=== PATIENT | male | born 1950 | race African-American/Black ===

== ENCOUNTER 2019-08-14 19:11 | Inpatient (IN) | payer OTHER, MEDICAID ==
[~2019-08-14] VITALS: Ht 175.3 cm; Wt 87.2 kg
[2019-08-14] MEDS ORDERED: SODIUM CHLORIDE 0.9% 2,000 ML IV ONE (20:00)
[2019-08-14] MEDS ORDERED: NALOXONE HCL 1 MG/ML 2 ML SYG IVP ONE (20:15)
[2019-08-14 20:29] LABS: BASOPHILS % (AUTO) 0.4 % (0.0-2.0); EOSINOPHILS % (AUTO) 0.3 % (1.0-6.0); HEMATOCRIT 45.9 % (41-53); HEMOGLOBIN 15.6 g/dL (13.5-17.5); LYMPHOCYTES # (AUTO) 1.3 K/uL (1.0-4.8); LYMPHOCYTES % (AUTO) 18.6 % (22.0-44.0); MEAN CORPUSCULAR HEMOGLOBIN 28.9 pg (26.0-34.0); MEAN CORPUSCULAR HGB CONC 33.9 G/dL (31.0-37.0); MEAN CORPUSCULAR VOLUME 85 fL (80-100); MONOCYTES # (AUTO) 0.4 K/uL (0.1-1.0); MONOCYTES % (AUTO) 6.1 % (2.0-9.0); NEUTROPHILS # (AUTO) 5.2 K/uL (1.8-7.7); NEUTROPHILS % (AUTO) 74.6 % (40.0-70.0); PLATELET COUNT (AUTO) 220 K/uL (150-450); RED BLOOD CELL COUNT(AUTO) 5.38 MIL/uL (4.50-5.90); RED CELL DISTRIBUTION WIDTH 14.5 % (11.5-14.5)
[2019-08-14 20:43] LABS: ANION GAP 11 mmol/L (8-16); CALCIUM, TOTAL 9.6 mg/dL (8.8-10.5); CARBON DIOXIDE 28 mmol/L (22-29); CHLORIDE 101 mmol/L (98-107); CREATININE 1.52 mg/dL (0.60-1.30); GLOMERULAR FILTR. RATE CALC 56 mL/min (>60); GLUCOSE,RANDOM 192 mg/dL (70-110); POTASSIUM 3.3 mmol/L (3.5-5.1); SODIUM SERUM 140 mmol/L (136-145); UREA NITROGEN, BLOOD 18 mg/dL (7-18)
[2019-08-14 20:46] LABS: AMMONIA 13 umol/L (11-32)
[2019-08-14 20:48] LABS: TROPONIN I < 0.02 ng/mL (0.00-0.05)
[2019-08-14 20:57] LABS: B-TYPE NATRIURETIC PEPTIDE 41 pg/mL (0-100)
[2019-08-14 21:00] LABS: ALANINE AMINOTRANSFERASE 35 U/L (12-78); ALBUMIN 4.1 g/dL (3.4-5.0); ALKALINE PHOSPHATASE 90 U/L (46-116); ASPARTATE AMINOTRANSFERASE 20 U/L (15-37); BILIRUBIN,TOTAL 0.8 mg/dL (0.1-1.0); LIPASE 67 U/L (73-393); TOTAL PROTEIN, SERUM 8.9 g/dL (6.4-8.2)
[2019-08-14 21:10] LABS: LACTIC ACID 2.2 mmol/L (0.4-2.0)
[2019-08-14 21:15] LABS: APPEARANCE,URINE CLOUDY (CLEAR); GLUCOSE, URINE (UA) NEGATIVE (NEGATIVE); KETONES,URINE TRACE mg/dL (NEGATIVE); LEUKOCYTE ESTERASE ,URINE MODERATE (NEGATIVE); NITRATE,URINE NEGATIVE (NEGATIVE); OCCULT BLOOD,URINE LARGE (NEGATIVE); PROTEIN,URINE SEE CONFIRM (NEGATIVE)
[2019-08-14 21:21] LABS: BILIRUBIN,URINE PRELIM. POSITIVE (NEGATIVE)
[2019-08-14 21:22] LABS: INR 1.1 (0.9-1.1); PROTHROMBIN TIME 11.4 SEC (9.4-11.6)
[2019-08-14 21:23] LABS: AMPHET/METH SCREEN,URINE NEGATIVE (NEGATIVE); BARBITURATE SCREEN, URINE NEGATIVE (NEGATIVE); BENZODIAZEPINES SCREEN,URINE NEGATIVE (NEGATIVE); CANNABINOID SCREEN,URINE NEGATIVE (NEGATIVE); COCAINE SCREEN,URINE NEGATIVE (NEGATIVE); METHADONE SCREEN, URINE NEGATIVE (NEGATIVE); OPIATE SCREEN,URINE NEGATIVE (NEGATIVE)
[2019-08-14 21:30] LABS: PHENCYCLIDINE SCREEN,URINE NEGATIVE (NEGATIVE); RBC,URINE Full Field /HPF (0-2)
[2019-08-14] MEDS ORDERED: ONDANSETRON HCL 4 MG/2 ML VIAL IVP PRN ×2 (21:30→22:15)
[2019-08-14] MEDS ORDERED: 0.9% SODIUM CHLORIDE 10 ML SYRINGE IVP PRN (21:30)
[2019-08-14] MEDS ORDERED: OXYGEN THERAPY IH SCH (21:30)
[2019-08-14 21:31] LABS: SULFOSALICYLIC ACID,URINE 3+ (Negative)
[2019-08-14 21:32] LABS: BACTERIA,URINE Rare /HPF (None Seen)
[2019-08-14] MEDS ORDERED: LORazepam 2 MG/ML VIAL IVP ONE ×2 (22:00→22:15)
[2019-08-14] MEDS ORDERED: MAGNESIUM HYDROXIDE SUSPENSION 30 ML UDCUP PO PRN (22:15)
[2019-08-14] MEDS ORDERED: BISACODYL 10 MG RECTAL RECTAL SUPPOSITORY PR PRN (22:15)
[2019-08-14] MEDS ORDERED: ACETAMINOPHEN 325 MG TABLET PO PRN (22:15)
[2019-08-14] MEDS ORDERED: ZOLPIDEM TARTRATE 5 MG TABLET PO PRN (22:15)
[2019-08-14 23:30] VITALS: BP 198/97
[2019-08-14] MEDS ORDERED: SODIUM CHLORIDE 0.9% 250 ML IV ONE (23:36)
[2019-08-14] MEDS: POTASSIUM CHL 10 MEQ/WATER 50 ML IV SCH (23:42)
[2019-08-15] VITALS (7 sets, daily range): BP systolic 139–202; BP diastolic 57–98
[2019-08-15] MEDS: NiCARDipine HCL 25 MG in DEXTROSE 5%-WATER 240 ML IV PRN ×11 (00:21→21:26)
[2019-08-15] MEDS: POTASSIUM CHL 10 MEQ/WATER 50 ML IV SCH (00:46)
[2019-08-15] MEDS ORDERED: PNEUMOCOCCAL VACCINE POLYVALENT 0.5 ML VIAL [PPSV23] IM ONE (01:45)
[2019-08-15] MEDS ORDERED: INFLUENZA VIRUS VACCINE QVS 2019-20 (3YR+)/PF 60 MCG/0.5 ML SYRINGE IM ONE (01:45)
[2019-08-15 05:31] LABS: BASOPHILS % (AUTO) 0.3 % (0.0-2.0); EOSINOPHILS % (AUTO) 0.2 % (1.0-6.0); HEMATOCRIT 43.5 % (41-53); HEMOGLOBIN 14.7 g/dL (13.5-17.5); LYMPHOCYTES % (AUTO) 11.6 % (22.0-44.0); MEAN CORPUSCULAR HEMOGLOBIN 28.9 pg (26.0-34.0); MEAN CORPUSCULAR HGB CONC 33.7 G/dL (31.0-37.0); MEAN CORPUSCULAR VOLUME 86 fL (80-100); MONOCYTES # (AUTO) 0.6 K/uL (0.1-1.0); MONOCYTES % (AUTO) 6.7 % (2.0-9.0); NEUTROPHILS # (AUTO) 6.9 K/uL (1.8-7.7); NEUTROPHILS % (AUTO) 81.2 % (40.0-70.0); PLATELET COUNT (AUTO) 188 K/uL (150-450); RED BLOOD CELL COUNT(AUTO) 5.08 MIL/uL (4.50-5.90); RED CELL DISTRIBUTION WIDTH 14.9 % (11.5-14.5)
[2019-08-15 05:40] LABS: ANION GAP 10 mmol/L (8-16); CALCIUM, TOTAL 8.6 mg/dL (8.8-10.5); CARBON DIOXIDE 27 mmol/L (22-29); CHLORIDE 100 mmol/L (98-107); CREATININE 1.34 mg/dL (0.60-1.30); GLOMERULAR FILTR. RATE CALC > 60 mL/min (>60); GLUCOSE,RANDOM 310 mg/dL (70-110); POTASSIUM 3.5 mmol/L (3.5-5.1); SODIUM SERUM 137 mmol/L (136-145); UREA NITROGEN, BLOOD 13 mg/dL (7-18)
[2019-08-15] MEDS: PANTOPRAZOLE SODIUM 40 MG DR TABLET PO SCH (09:00)
[2019-08-15] MEDS: DOCUSATE SODIUM 100 MG CAPSULE PO SCH ×2 (09:00→20:17)
[2019-08-15] MEDS ORDERED: BACITRACIN 50,000 UNITS/VIAL ONE (09:14)
[2019-08-15] MEDS ORDERED: LIDOCAINE 1%/EPI 1:200,000/PF 10 ML VIAL ONE (09:14)
[2019-08-15] MEDS ORDERED: BACITRACIN 28.4 GM OINTMENT TP ONE (09:16)
[2019-08-15] MEDS ORDERED: PHENYTOIN SODIUM 50 MG/ML IV ONE (09:16)
[2019-08-15] MEDS ORDERED: THROMBIN, BOVINE 20000 UNITS/VIAL POWDER TP ONE (09:17)
[2019-08-15] MEDS ORDERED: GELATIN SPONGE,ABSORBABLE 50 MM TP ONE (09:18)
[2019-08-15] MEDS ORDERED: SUGAMMADEX SODIUM 200 MG/2 ML VIAL IVP ONE (09:31)
[2019-08-15] MEDS ORDERED: RINGERS SOLUTION,LACTATED 1,000 ML IV ONE (10:48)
[2019-08-15 16:23] LABS: ABG HCO3 21.4 mmol/L (22.0-26.0); ABG PCO2 39 mmHg (35-45); ABG PH 7.357 (7.35-7.450); PO2, ARTERIAL BG 79.2 mmHg (79.0-87.0); SITE, BLOOD GAS ARTERIAL LINE; SOURCE, BLOOD GAS ARTERIAL; TEMPERATURE, FAHRENHEIT, BG 98.1 FAHREN (96.0-98.6)
[2019-08-15 16:24] LABS: ABG A-A DIFF O2 74.3 mmHg (10-20.0); ABG BASE EXCESS -3.9 mmol/L (-2.0-3.0); ABG CARBOXYHEMOGLOBIN 0.7 % (0.0-1.5); ABG METHEMOGLOBIN 0.3 % (0.0-1.5); ABG OXYGEN CONTENT 18.7 mL/dL (15.0-23.0); ABG OXYGEN SATURATION 94.8 % (95.0-98.0); ABG OXYHEMOGLOBIN 93.9 % (94.0-100.0); ABG TOTAL HEMOGLOBIN 14.1 G/dL (12.0-18.0); O2 DEVICE,BLOOD GAS CANNULA (ROOM AIR)
[2019-08-15] MEDS ORDERED: INSULIN LISPRO 100 UNITS/ML SQ PRN (16:30)
[2019-08-15] MEDS ORDERED: DEXTROSE 50%-WATER 25 GM/50 ML SYRINGE IVP PRN ×2 (16:30→20:30)
[2019-08-15] MEDS: AmLODIPine BESYLATE 10 MG TABLET PO SCH (16:30)
[2019-08-15 17:03] LABS: ABG A-A DIFF O2 64.4 mmHg (10-20.0); ABG BASE EXCESS -2.4 mmol/L (-2.0-3.0); ABG CARBOXYHEMOGLOBIN 0.8 % (0.0-1.5); ABG HCO3 22.8 mmol/L (22.0-26.0); ABG METHEMOGLOBIN 0.3 % (0.0-1.5); ABG OXYGEN SATURATION 96.8 % (95.0-98.0); ABG OXYHEMOGLOBIN 95.7 % (94.0-100.0); ABG PCO2 37 mmHg (35-45); ABG PH 7.399 (7.35-7.450); ABG TOTAL HEMOGLOBIN 14.1 G/dL (12.0-18.0); PO2, ARTERIAL BG 91.4 mmHg (79.0-87.0); SOURCE, BLOOD GAS ARTERIAL; TEMPERATURE, FAHRENHEIT, BG 98.9 FAHREN (96.0-98.6)
[2019-08-15 17:11] LABS: O2 DEVICE,BLOOD GAS CANNULA (ROOM AIR); SITE, BLOOD GAS ARTERIAL LINE
[2019-08-15] MEDS ORDERED: NiCARDipine HCL 25 MG in SODIUM CHLORIDE 0.9% 240 ML IV PRN (20:24)
[2019-08-15] MEDS: MORPHINE SULFATE 2 MG/ML SYRINGE IVP PRN (20:33)
[2019-08-15] MEDS: INSULIN LISPRO 100 UNITS/ML SQ PRN (20:45)
[2019-08-15] MEDS: HydrALAZINE HCL 20 MG/ML VIAL IVP PRN (21:06)
[2019-08-15] MEDS: ACETAMINOPHEN 650 MG/ISO-OSM 65 ML IV SCH (21:08)
[2019-08-16] VITALS (10 sets, daily range): BP systolic 133–178; BP diastolic 62–103
[2019-08-16] MEDS: NiCARDipine HCL 25 MG in DEXTROSE 5%-WATER 240 ML IV PRN (00:04)
[2019-08-16] MEDS: INSULIN LISPRO 100 UNITS/ML SQ PRN ×4 (01:00→20:42)
[2019-08-16] MEDS: HYDROCODONE/ACETAMINOPHEN 5-325 MG TABLET PO PRN ×2 (01:00→21:10)
[2019-08-16] MEDS: HydrALAZINE HCL 20 MG/ML VIAL IVP PRN ×3 (03:01→12:21)
[2019-08-16 03:07] LABS: GLUCOSE,POINT OF CARE 454 MG/DL (70-110)
[2019-08-16 03:07] LABS: GLUCOSE,POINT OF CARE 203 MG/DL (70-110)
[2019-08-16 03:07] LABS: GLUCOSE,POINT OF CARE 444 MG/DL (70-110)
[2019-08-16] MEDS: ACETAMINOPHEN 650 MG/ISO-OSM 65 ML IV SCH ×3 (03:28→15:24)
[2019-08-16] MEDS ORDERED: DEXAMETHASONE SOD PHOS 4 MG/ML VIAL IVP ONE (05:08)
[2019-08-16] MEDS ORDERED: LIDOCAINE/PF 2% 5 ML SYRINGE IVP ONE (05:08)
[2019-08-16] MEDS ORDERED: FentaNYL CITRATE-PF 250 MCG/5 ML VIAL IVP ONE (05:08)
[2019-08-16] MEDS ORDERED: ONDANSETRON HCL 4 MG/2 ML VIAL IVP ONE (05:08)
[2019-08-16] MEDS ORDERED: PROPOFOL 1% 20 ML VIAL IVP ONE (05:08)
[2019-08-16] MEDS ORDERED: ROCURONIUM BROMIDE 10 MG/ML 5 ML VIAL IVP ONE (05:08)
[2019-08-16] MEDS ORDERED: MIDAZOLAM HCL 2 MG/2 ML VIAL IVP ONE (05:08)
[2019-08-16 06:49] LABS: BASOPHILS % (AUTO) 0.1 % (0.0-2.0); EOSINOPHILS % (AUTO) 0 % (1.0-6.0); HEMATOCRIT 40.5 % (41-53); HEMOGLOBIN 13.8 g/dL (13.5-17.5); LYMPHOCYTES # (AUTO) 0.9 K/uL (1.0-4.8); LYMPHOCYTES % (AUTO) 6.5 % (22.0-44.0); MEAN CORPUSCULAR HEMOGLOBIN 29.1 pg (26.0-34.0); MEAN CORPUSCULAR HGB CONC 34.1 G/dL (31.0-37.0); MEAN CORPUSCULAR VOLUME 85 fL (80-100); MONOCYTES # (AUTO) 0.8 K/uL (0.1-1.0); MONOCYTES % (AUTO) 5.4 % (2.0-9.0); NEUTROPHILS # (AUTO) 12.6 K/uL (1.8-7.7); PLATELET COUNT (AUTO) 229 K/uL (150-450); RED BLOOD CELL COUNT(AUTO) 4.75 MIL/uL (4.50-5.90); RED CELL DISTRIBUTION WIDTH 14.5 % (11.5-14.5)
[2019-08-16 06:57] LABS: GLUCOSE,POINT OF CARE 130 MG/DL (70-110)
[2019-08-16 07:00] LABS: CALCIUM, TOTAL 8.7 mg/dL (8.8-10.5); CREATININE 1.56 mg/dL (0.60-1.30); POTASSIUM 3.6 mmol/L (3.5-5.1)
[2019-08-16] MEDS: AmLODIPine BESYLATE 10 MG TABLET PO SCH (08:13)
[2019-08-16] MEDS: DOCUSATE SODIUM 100 MG CAPSULE PO SCH ×2 (08:13→20:41)
[2019-08-16] MEDS: PANTOPRAZOLE SODIUM 40 MG DR TABLET PO SCH (08:14)
[2019-08-16] MEDS: MORPHINE SULFATE 2 MG/ML SYRINGE IVP PRN (12:46)
[2019-08-16 13:37] LABS: GLUCOSE,POINT OF CARE 216 MG/DL (70-110)
[2019-08-16] MEDS: LISINOPRIL 10 MG TABLET PO SCH ×2 (15:24→20:41)
[2019-08-16] MEDS: CloNIDine HCL 0.1 MG TABLET PO SCH ×2 (15:24→20:41)
[2019-08-16] MEDS ORDERED: SODIUM CHLORIDE 0.9% 250 ML IV ONE (15:27)
[2019-08-16 19:02] LABS: GLUCOSE,POINT OF CARE 193 MG/DL (70-110)
[2019-08-16 20:51] LABS: GLUCOSE,POINT OF CARE 158 MG/DL (70-110)
[2019-08-16 22:12] LABS: CALCIUM, TOTAL 8.4 mg/dL (8.8-10.5); CREATININE 1.42 mg/dL (0.60-1.30); POTASSIUM 3.4 mmol/L (3.5-5.1)
[2019-08-16 22:15] LABS: MAGNESIUM 1.8 mg/dL (1.80-2.40); PHOSPHORUS 2.8 mg/dL (2.5-4.9)
[2019-08-16] MEDS ORDERED: POTASSIUM CHLORIDE 20 MEQ ER TABLET PO ONE (22:45)
[2019-08-16] MEDS ORDERED: CefTRIAXone 1 GM/DEXTROSE 50 ML IV SCH (23:00)
[2019-08-17] VITALS: BP 133/104
[2019-08-17 04:00] VITALS: BP 124/79
[2019-08-17] MEDS: INSULIN LISPRO 100 UNITS/ML SQ PRN ×4 (06:06→21:01)
[2019-08-17 06:22] LABS: APPEARANCE,URINE CLOUDY (CLEAR); BILIRUBIN,URINE NEGATIVE (NEGATIVE); GLUCOSE, URINE (UA) NEGATIVE (NEGATIVE); KETONES,URINE NEGATIVE (NEGATIVE); LEUKOCYTE ESTERASE ,URINE MODERATE (NEGATIVE); NITRATE,URINE NEGATIVE (NEGATIVE); OCCULT BLOOD,URINE MODERATE (NEGATIVE); PH,URINE 5.5 (5.0-8.0); PROTEIN,URINE SEE CONFIRM (NEGATIVE); UROBILINOGEN,URINE 0.2 mg/dL (<=1.0)
[2019-08-17 06:26] LABS: BACTERIA,URINE None Seen /HPF (None Seen); SQUAMOUS EPITHELIAL CELL,UR Few /LPF (None Seen); SULFOSALICYLIC ACID,URINE 3+ (Negative)
[2019-08-17 06:35] LABS: BASOPHILS % (AUTO) 0.2 % (0.0-2.0); EOSINOPHILS % (AUTO) 0 % (1.0-6.0); HEMATOCRIT 38.6 % (41-53); LYMPHOCYTES # (AUTO) 1.8 K/uL (1.0-4.8); LYMPHOCYTES % (AUTO) 17.3 % (22.0-44.0); MEAN CORPUSCULAR HEMOGLOBIN 28.8 pg (26.0-34.0); MEAN CORPUSCULAR HGB CONC 33.7 G/dL (31.0-37.0); MEAN CORPUSCULAR VOLUME 85 fL (80-100); MONOCYTES # (AUTO) 0.9 K/uL (0.1-1.0); MONOCYTES % (AUTO) 8.4 % (2.0-9.0); NEUTROPHILS # (AUTO) 7.7 K/uL (1.8-7.7); NEUTROPHILS % (AUTO) 74.1 % (40.0-70.0); PLATELET COUNT (AUTO) 213 K/uL (150-450); RED BLOOD CELL COUNT(AUTO) 4.53 MIL/uL (4.50-5.90); RED CELL DISTRIBUTION WIDTH 14.6 % (11.5-14.5)
[2019-08-17 06:47] LABS: ANION GAP 9 mmol/L (8-16); CALCIUM, TOTAL 8.2 mg/dL (8.8-10.5); CARBON DIOXIDE 28 mmol/L (22-29); CHLORIDE 106 mmol/L (98-107); CREATININE 1.39 mg/dL (0.60-1.30); GLOMERULAR FILTR. RATE CALC > 60 mL/min (>60); GLUCOSE,RANDOM 134 mg/dL (70-110); POTASSIUM 3.9 mmol/L (3.5-5.1); SODIUM SERUM 143 mmol/L (136-145); UREA NITROGEN, BLOOD 22 mg/dL (7-18)
[2019-08-17 07:34] LABS: GLUCOSE,POINT OF CARE 133 MG/DL (70-110)
[2019-08-17 08:00] VITALS: BP 167/101
[2019-08-17] MEDS: AmLODIPine BESYLATE 10 MG TABLET PO SCH (08:09)
[2019-08-17] MEDS: LISINOPRIL 10 MG TABLET PO SCH (08:09)
[2019-08-17] MEDS: HYDROCODONE/ACETAMINOPHEN 5-325 MG TABLET PO PRN ×2 (08:09→15:25)
[2019-08-17] MEDS: CloNIDine HCL 0.1 MG TABLET PO SCH (08:09)
[2019-08-17] MEDS: PANTOPRAZOLE SODIUM 40 MG DR TABLET PO SCH (08:09)
[2019-08-17] MEDS: DOCUSATE SODIUM 100 MG CAPSULE PO SCH ×2 (08:09→20:58)
[2019-08-17 12:00] VITALS: BP 160/78
[2019-08-17 13:43] LABS: GLUCOSE,POINT OF CARE 201 MG/DL (70-110)
[2019-08-17] MEDS: HydrALAZINE HCL 20 MG/ML VIAL IVP PRN (15:25)
[2019-08-17 16:00] VITALS: BP 187/83
[2019-08-17 17:39] LABS: GLUCOSE,POINT OF CARE 180 MG/DL (70-110)
[2019-08-17 20:00] VITALS: BP 159/95
[2019-08-17] MEDS ORDERED: VANCOMYCIN HCL 1.25 GM in DEXTROSE 5%-WATER 250 ML IV ONE (20:00)
[2019-08-17] MEDS: LISINOPRIL 20 MG TABLET PO SCH (20:58)
[2019-08-17] MEDS: CARVEDILOL 12.5 MG TABLET PO SCH (20:58)
[2019-08-18] VITALS: BP 152/95
[2019-08-18 03:05] VITALS: BP 159/79
[2019-08-18] MEDS: HYDROCODONE/ACETAMINOPHEN 5-325 MG TABLET PO PRN (03:09)
[2019-08-18 04:00] VITALS: BP 158/94
[2019-08-18] MEDS: INSULIN LISPRO 100 UNITS/ML SQ PRN ×2 (05:55→11:57)
[2019-08-18] MEDS: LISINOPRIL 20 MG TABLET PO SCH (06:12)
[2019-08-18 06:20] LABS: CALCIUM, TOTAL 8.4 mg/dL (8.8-10.5); CREATININE 1.57 mg/dL (0.60-1.30); POTASSIUM 3.7 mmol/L (3.5-5.1)
[2019-08-18] MEDS ORDERED: VANCOMYCIN HCL 750 MG in DEXTROSE 5%-WATER 250 ML IV SCH (07:00)
[2019-08-18 07:03] LABS: GLUCOSE,POINT OF CARE 136 MG/DL (70-110)
[2019-08-18 07:03] LABS: GLUCOSE,POINT OF CARE 222 MG/DL (70-110)
[2019-08-18 08:00] VITALS: BP 171/68
[2019-08-18] MEDS: DOCUSATE SODIUM 100 MG CAPSULE PO SCH (08:18)
[2019-08-18] MEDS: CARVEDILOL 12.5 MG TABLET PO SCH (08:18)
[2019-08-18] MEDS: PANTOPRAZOLE SODIUM 40 MG DR TABLET PO SCH (08:18)
[2019-08-18] MEDS: AmLODIPine BESYLATE 10 MG TABLET PO SCH (08:18)
[2019-08-18] MEDS ORDERED: MULTIVITAMINS WITH MINERALS, THERAPEUTIC TABLET PO SCH (09:00)
[2019-08-18] MEDS: HydrALAZINE HCL 20 MG/ML VIAL IVP PRN (09:58)
[2019-08-18] MEDS: MORPHINE SULFATE 2 MG/ML SYRINGE IVP PRN (10:43)
[2019-08-18 12:00] VITALS: BP 165/91
[2019-08-18 12:37] LABS: GLUCOSE,POINT OF CARE 157 MG/DL (70-110)
[2019-08-18 16:00] VITALS: BP 162/106
== END 2019-08-18 16:15 | disposition short-term general hospital (02) | DRG 26 ==
LOC: EMS 19:12 → ICU 22:00
PROVIDERS: ADMIT Internal Medicine; ATTEND Internal Medicine
PROC: 00C40ZZ Extirpation of Matter from Intracranial Subdural Space, Open Approach (ICD-10-PCS; principal; 2019-08-15 10:30)
DX: I62.01 Nontraumatic acute subdural hemorrhage (principal); R65.10 Systemic inflammatory response syndrome (SIRS) of non-infectious origin without acute organ dysfunction; E87.6 Hypokalemia; I16.0 Hypertensive urgency; N18.9 Chronic kidney disease, unspecified; D63.1 Anemia in chronic kidney disease; I12.9 Hypertensive chronic kidney disease with stage 1 through stage 4 chronic kidney disease, or unspecified chronic kidney disease; N18.3 Chronic kidney disease, stage 3 (moderate); E11.22 Type 2 diabetes mellitus with diabetic chronic kidney disease; Z85.46 Personal history of malignant neoplasm of prostate
CPT/HCPCS: 51701; 51702; 70450; 82805; 83036; 83605; 83735; 84100; 86850; 86900; 86901; 87040; 87086; 92610; 93005; 93306; 97110; 97162; 97167; 97530; 97535; 99291; G0378; G0480; J0131; J0360; J0690; J0696; J1100; J1165; J2060; J2250; J2270; J2310; J2405; J2704; J3010; J3370; J3480; J3490; J7030; J7050; J7060; J7120